=== PATIENT | female | born 1960 | race Caucasian/White ===

== ENCOUNTER 2021-03-25 15:32 | Emergency (ER) | payer BC ==
[2021-03-25] MEDS ORDERED: CASIRIVIMAB/IMDEVIMAB 10 ML in SODIUM CHLORIDE 100 ML IVPB ONE (15:47)
[2021-03-25 16:17] VITALS: BMI 22.8
[2021-03-25] MEDS ORDERED: ACETAMINOPHEN 500 MG TABLET (FP) PO ONE (16:25)
[2021-03-25 17:40] LABS: BASO % 0.9 % (0-2.0); EOS % 0.2 % (0-4.5); HEMATOCRIT 36.7 % (32.4-45.2); HEMOGLOBIN 12.6 GM/dL (10.7-15.3); LYMPH % 17.4 % (8-40); MCH 31.4 pg (25.7-33.7); MCHC 34.3 g/dl (32.0-36.0); MEAN CELL VOLUME 91.8 fl (80-96); MEAN PLT VOLUME 9.7 fl (7.5-11.1); MONO % 9.2 % (3.8-10.2); NEUT % 72.3 % (42.8-82.8); PLATELET COUNT 158 10^3/uL (134-434); RDW 12.5 % (11.6-15.6); WHITE BLOOD COUNT 2.5 K/mm3 (4.0-10.0)
[2021-03-25 18:05] VITALS: BP 136/70; PULSE 87; TEMP 99.6
[2021-03-25 18:05] LABS: CALCIUM 8.8 mg/dL (8.5-10.1)
[2021-03-25 18:06] LABS: ALBUMIN 3.8 g/dl (3.4-5.0); BLOOD UREA NITROGEN 9.9 mg/dL (7-18)
[2021-03-25 18:09] LABS: CREATININE 0.8 mg/dL (0.55-1.3)
[2021-03-25 18:10] LABS: BILIRUBIN,TOTAL 0.4 mg/dL (0.2-1)
[2021-03-25 18:11] LABS: TOT PROT 6.9 g/dl (6.4-8.2)
== END 2021-03-25 19:09 | disposition home or self-care (01) ==
LOC: JER 15:32
DX: U07.1 COVID-19 (principal)
CPT/HCPCS: 36415; 80053; 85025; 99284-25; M0240; Q0240